=== PATIENT | female | born 1965 | race Caucasian/White ===

== ENCOUNTER 2024-12-26 01:31 | Emergency (ER) | payer SELFPAY ==
[~2024-12-26] VITALS: Ht 162.6 cm; Wt 66.0 kg
[2024-12-26 01:44] VITALS: BP 128/71; PULSE 89; RESP 16; TEMP 37.1; O2SAT 98
[2024-12-26 02:17] VITALS: TEMP 98.8
[2024-12-26] MEDS: ACETAMINOPHEN 325MG TABLET PO ONE (02:17)
[2024-12-26] MEDS ORDERED: BENZ100C86 MT (02:37)
[2024-12-26] MEDS ORDERED: GUAI-450 MT (02:37)
== END 2024-12-26 03:16 | disposition home or self-care (01) ==
LOC: ER 01:31
DX: J06.9 Acute upper respiratory infection, unspecified (principal); B97.89 Other viral agents as the cause of diseases classified elsewhere
CPT/HCPCS: 71045; 99283